=== PATIENT | female | born 1990 | race African-American/Black ===

== ENCOUNTER 2018-04-04 20:01 | Emergency (ER) | payer SELFPAY ==
--- NOTE | 2018-04-04 20:40 | RADIOLOGY REPORT (SQ) ---
EXAM DESCRIPTION: HAND RIGHT 3 VIEWS COMPLETED DATE/TIME: 04/04/2018 8:31 pm REASON FOR STUDY: pain/swelling COMPARISON: None. EXAM PARAMETERS: NUMBER OF VIEWS: Three views. TECHNIQUE: AP, lateral and oblique radiographic images acquired of the right hand. LIMITATIONS: None. FINDINGS: MINERALIZATION: Normal. BONES: No acute fracture or dislocation. No worrisome bone lesions. JOINTS: No effusions. SOFT TISSUES: No soft tissue swelling. No foreign body. OTHER: No other significant finding. IMPRESSION: NEGATIVE STUDY OF THE RIGHT HAND. NO RADIOGRAPHIC EVIDENCE OF ACUTE INJURY. TECHNICAL DOCUMENTATION: JOB ID: [id number] [employer]- All Rights Reserved Reading location - IP/workstation name: [email or web address]
[2018-04-05] MEDS ORDERED: CEPHALEXIN 500 MG CAPSULE PO ONE (00:37)
--- NOTE | 2018-04-05 00:42 | ER Document Report ---
HPI - HPI Pain Level: 2 Notes: Patient is a 27-year-old female no significant past medical history who presents to the ED complaining of right distal thumb pain near the edge of the nail times 3 months, but increased over the last few days. Patient states that today she noticed a little bit of pus coming out. She is still able to move her thumb without difficulties. No injury that she is aware of. Patient states that she had an allergy to penicillins as a child. She has no other concerns or complaints. Pain does not radiate. Denies any headache, fever, URI , sore throat, chest pain, palpitations, syncope, cough, shortness of breath, wheeze, dyspnea, abdominal pain, nausea/vomiting/diarrhea, urinary retention, dysuria, hematuria, numbness/tingling, muscle paralysis/weakness, or rash. - ROS Systems Reviewed and Negative: Yes All other systems reviewed and negative Past Medical History - Social History Smoking Status: Never Smoker Family History: Reviewed & Not Pertinent Vertical Provider Document - CONSTITUTIONAL Agree With Documented VS: Yes Notes: PHYSICAL EXAMINATION: GENERAL: Well-appearing, well-nourished and in no acute distress. LUNGS: Breath sounds clear to auscultation bilaterally and equal. No wheezes rales or rhonchi. HEART: Regular rate and rhythm without murmurs, rubs, gallops. Musculoskeletal: Rt thumb: FROM to passive/active. Strength 5+/5. No bony tenderness. N/V intact distal. No erythema distal finger at edge of nail border w/o any abscess, induration, fluctuance, or firmness to pad (i.e. felon) . No ecchymosis or deformity. Extremities: No cyanosis, clubbing, or edema b/l. Peripheral pulses 2+. Capillary refill less than 3 seconds. NEUROLOGICAL: Normal speech, normal gait. Normal sensory, motor exams PSYCH: Normal mood, normal affect. SKIN: see above. Warm, Dry, normal turgor, no rashes or lesions noted. - INFECTION CONTROL TRAVEL OUTSIDE OF THE [place] IN LAST 30 DAYS: No Course - Re-evaluation Re-evalutation: 04/05/18 00:40 Patient is an afebrile, well-hydrated, 27-year-old female who presents to the ED with right distal thumb pain, possible mild skin infection to the area. Vitals are acceptable. PE is otherwise unremarkable. Patient has a report of purulent discharge, but there is no erythema or abscess present. There is no skin induration or point of maximal tenderness. The anterior thumb is soft to palpation. X-ray was unremarkable for any acute pathology. No incision and drainage warranted at this time based on H&P. As precautionary due to the history of purulent discharge, I will send her home with some Keflex to take as directed. Conservative measures otherwise for symptoms. No other labs or imaging warranted at this time based on H&P. Recheck with your PCM in 3-5 days. Consider consult orthopedics. Return to the ED with any worsening/ concerning symptoms otherwise as reviewed in discharge. Patient is in agreement. - Vital Signs Vital signs: Temp Pulse Resp BP Pulse Ox 98.5 F 98 16 145/88 H 100 04/04/18 20:45 04/04/18 20:45 04/04/18 20:45 04/04/18 20:45 04/04/18 20:45 Discharge - Discharge Clinical Impression: Pain of right thumb Condition: Stable Disposition: HOME, SELF-CARE Additional Instructions: Keep the skin clean Wash with soap and water Tylenol/ibuprofen if needed Triple antibiotic ointment daily Take medication as directed Monitor for any worsening symptoms Recheck with your PCM in 3-5 days Consider consult with Orthopedics for ongoing/worsening symptoms Return to the ED with any worsening symptoms and/or development of fever, headache, chest pain, palpitations, syncope, shortness of breath, trouble breathing, abdominal pain, n/v/d, abscess, purulent discharge, red streaks, worsening swelling, or other worsening symptoms that are concerning to you. Prescriptions: Cephalexin Monohydrate [Keflex 500 mg Capsule] 500 mg PO BID #20 capsule Forms: Elevated Blood Pressure Referrals: [facility] [Provider Group] - Follow up as needed [facility] [Provider Group] - Follow up as needed
[2018-04-05 01:22] VITALS: BP 130/89
== END 2018-04-05 01:23 | disposition home or self-care (01) ==
LOC: ER 20:01
DX: M79.644 Pain in right finger(s) (principal); R23.8 Other skin changes; Z88.0 Allergy status to penicillin
CPT/HCPCS: 99283